=== PATIENT | male | born 1995 | race Caucasian/White ===

== ENCOUNTER 2018-06-04 21:35 | Emergency (ER) | payer OTHER ==
[~2018-06-04] VITALS: Ht 177.8 cm; Wt 84.8 kg
[2018-06-04] MEDS ORDERED: NAPROSYN500 M1 PO (22:07)
[2018-06-04] MEDS ORDERED: BACTRIM DS TAB1 EACH PO (22:07)
[2018-06-04 22:33] VITALS: BP 131/72
== END 2018-06-04 22:34 | disposition home or self-care (01) ==
LOC: M.ERS 21:35
DX: L03.115 Cellulitis of right lower limb (principal); F17.210 Nicotine dependence, cigarettes, uncomplicated; W57.XXXA Bitten or stung by nonvenomous insect and other nonvenomous arthropods, initial encounter; Y93.89 Activity, other specified; Y92.89 Other specified places as the place of occurrence of the external cause; Y99.8 Other external cause status

== ENCOUNTER 2019-02-25 20:24 | Emergency (ER) | payer OTHER ==
[~2019-02-25] VITALS: Ht 177.8 cm; Wt 80.7 kg
[~2019-02-25 20:24] MED LIST: BACTRIM DS TAB1 EACH PO; NAPROSYN500 M1 PO
[2019-02-25 20:58] LABS: INFLUENZA A ANTIGEN Negative (Negative); INFLUENZA B ANTIGEN Negative (Negative)
[2019-02-25] MEDS ORDERED: PROMETH-CODEIN 65 ML PO (21:22)
[2019-02-25] MEDS ORDERED: AMOXICILLIN 50500 MG PO (21:22)
[2019-02-25 21:30] VITALS: BP 121/70
== END 2019-02-25 21:31 | disposition home or self-care (01) ==
LOC: M.ERS 20:24
PROVIDERS: Emergency Medicine
DX: J20.9 Acute bronchitis, unspecified (principal); F17.210 Nicotine dependence, cigarettes, uncomplicated